=== PATIENT | male | born 1965 | race Caucasian/White ===

== ENCOUNTER 2025-06-24 06:45 | Day surgery (SDC) | payer BC, SELFPAY ==
[2025-06-24] VITALS (10 sets, daily range): BP systolic 114–155; BP diastolic 70–93; PULSE 67–79; RESP 11–19; TEMP 36.4–36.7; O2SAT 96–98; BMI 29.7
[2025-06-24] MEDS: SODIUM CHLORIDE 0.9% 500 ML 500 ML 125 ML IV (07:37)
[2025-06-24] MEDS: MIDAZOLAM INJ 1 MG/ML VIAL 2 ML (ASD USE ONLY) 2 MG IVP (07:47)
[2025-06-24] MEDS: fentaNYL CIT INJ 50 mCg/ML AMP 2ML (ASD USE ONLY) IVP (07:49)
[2025-06-24] MEDS: SIMETHICONE 40 MG/0.6 ML ORAL SYRINGE PO (07:49)
== END 2025-06-24 08:40 | disposition home or self-care (01) ==
PROVIDERS: PCP Physician Assistant; Referring Provider Surgery; Visit Provider Surgery
PROC: 0DBE8ZX Excision of Large Intestine, Via Natural or Artificial Opening Endoscopic, Diagnostic (ICD-10-PCS; CPT 45380; principal; 2025-06-24 07:30)
DX: Z12.11 Encounter for screening for malignant neoplasm of colon (principal); D12.3 Benign neoplasm of transverse colon; K57.30 Diverticulosis of large intestine without perforation or abscess without bleeding
CPT/HCPCS: 45380; A4649; J1200; J2250; J3010; J7999; A9270